=== PATIENT | male | born 1950 | race Caucasian/White ===

== ENCOUNTER 2017-10-18 07:16 | Emergency (ER) | payer SELFPAY ==
--- NOTE | 2017-10-18 07:50 | UC ---
Abdominal Pain Male HPI - HPI Summary HPI Summary: 67 yo male with left groin pain x 3-4 days bulge yesterday gone today no cough no abd pain no constipation - History of Current Complaint Chief Complaint: UCGeneralIllness Stated Complaint: BULGE IN GROIN Time Seen by Provider: 10/18/17 07:29 Hx Obtained From: Patient Onset/Duration: Gradual Onset, Lasting Days Timing: Constant Severity Initially: Mild Severity Currently: None Pain Intensity: 0 Pain Scale Used: 0-10 Numeric Location: Other - left groin Character: Aching Aggravating Factor(s): Other - straining Alleviating Factor(s): Rest Associated Signs And Symptoms: Positive: Negative - Allergies/Home Medications Allergies/Adverse Reactions: Allergies Allergy/AdvReac Type Severity Reaction Status Date / Time No Known Allergies Allergy Verified 10/18/17 07:33 Home Medications: Home Medications NK [No Home Medications Reported] 10/18/17 [History Confirmed 10/18/17] PMH/Surg Hx/FS Hx/Imm Hx Previously Healthy: Yes - Surgical History Surgical History: Yes Surgery Procedure, Year, and Place: Bone spur removal in left shoulder - Family History Known Family History: Positive: Hypertension - Social History Alcohol Use: None Substance Use Type: None Smoking Status (MU): Never Smoked Tobacco Review of Systems Constitutional: Negative Skin: Negative Eyes: Negative ENT: Negative Respiratory: Negative Cardiovascular: Negative Gastrointestinal: Abdominal Pain - left groin Genitourinary: Negative Motor: Negative Neurovascular: Negative Musculoskeletal: Negative Neurological: Negative Psychological: Negative Is Patient Immunocompromised?: No All Other Systems Reviewed And Are Negative: Yes Physical Exam Triage Information Reviewed: Yes Vital Signs: Initial Vital Signs Temp 98.5 F 10/18/17 07:21 Pulse 54 10/18/17 07:21 Resp 18 10/18/17 07:21 BP 161/76 10/18/17 07:21 Pulse Ox 100 10/18/17 07:21 Eyes: Positive: Conjunctiva Clear ENT: Positive: Hearing grossly normal. Negative: Nasal congestion, Nasal drainage, Trismus, Muffled voice Neck: Positive: Supple, Nontender Respiratory: Positive: Lungs clear, Normal breath sounds, No respiratory distress Cardiovascular: Positive: RRR, No Murmur Abdomen Description: Positive: Nontender, No Organomegaly, Hernia @ - left inguinal-easily reducable. Negative: CVA Tenderness (R), CVA Tenderness (L) Bowel Sounds: Positive: Present Musculoskeletal: Positive: ROM Intact, No Edema Neurological: Positive: Fatigued Abd Pain Male Course/Dx - Differential Dx/Clinical Impression Provider Diagnoses: left inguinal hernia Discharge - Discharge Plan Condition: Stable Disposition: HOME Patient Education Materials: Inguinal Hernia (ED) Referrals: No Primary Care Phys,NOPCP [Primary Care Provider] - Additional Instructions: you need to see a general surgeon when you get home
== END 2017-10-18 07:50 | disposition home or self-care (01) ==
LOC: UCEAST 07:16
DX: K40.90 Unilateral inguinal hernia, without obstruction or gangrene, not specified as recurrent (principal)
CPT/HCPCS: 99201; G0463

== ENCOUNTER 2017-10-28 06:18 | Day surgery (SDC) | payer MEDICARE ==
[~2017-10-28 06:18] MED LIST: Buffered Lidocaine 0.9% SYRIN* 5 ML/SYR SYRINGE INTRADERM ONE; Ibuprofen TAB* 400 MG PO ONE; Sodium Citrate/Citric Acid* 15 ML UDC PO ONE
[2017-10-28] MEDS ORDERED: Ibuprofen TAB* 400 MG ONE (06:20)
[2017-10-28] MEDS ORDERED: ceFAZolin 2 GM PREMIX (*) 2 GM/50 ML BAG IVPB ONE (06:20)
[2017-10-28] MEDS ORDERED: Sodium Citrate/Citric Acid* 15 ML UDC ONE (06:21)
[2017-10-28] MEDS ORDERED: Lidocaine 1% MPF wEPI 200,000* 30 ML SDV ONE (07:13)
[2017-10-28] MEDS ORDERED: Bupivacaine 0.5% SDV PF* 10-30ML VIAL ONE (07:13)
[2017-10-28] MEDS ORDERED: Bupivacaine 0.25% SDV* 30 ML ONE (07:34)
[2017-10-28] MEDS ORDERED: Midazolam* 1 MG/ML 2 ML VIAL (2 MG) ONE ×3 (07:46→08:15)
[2017-10-28] MEDS ORDERED: fentaNYL* 50 MCG/ML 2 ML VIAL (100 MCG VIAL) ONE (07:46)
[2017-10-28] MEDS ORDERED: Chloroprocaine 2%* 20 ML VIAL ONE (07:46)
[2017-10-28] MEDS ORDERED: Propofol* 10 MG/ML 20 ML BTL IV PUSH ONE (08:42)
[2017-10-28] MEDS ORDERED: oxyCODONE/Acetamin 5/325 MG* TAB PO PRN ×2 (08:48→09:50)
[2017-10-28] MEDS ORDERED: Naloxone* 0.4 MG/ML 1 ML VIAL IV PRN (08:48)
[2017-10-28] MEDS ORDERED: oxyCODONE/Acetamin 5/325 MG* TAB ONE (09:54)
[2017-10-28 11:42] VITALS: BP 137/81
--- NOTE | 2017-10-29 01:16 | OP ---
CC: [facility], Attn: Fadi Lin MD * DATE OF OPERATION: 10/28/17 - [facility] DATE OF : 50 SURGEON: Fadi Lin MD TRACK MOVING MACHINE OPERATOR: PONCHO Spivey ANESTHESIOLOGIST: Alex Meyer MD ANESTHESIA: Spinal with local anesthetic. PRE-OP DIAGNOSIS: Left inguinal hernia. POST-OP DIAGNOSIS: Left indirect inguinal hernia. OPERATIVE PROCEDURE: Open repair with mesh of a left indirect inguinal hernia. ESTIMATED BLOOD LOSS: Minimal. SPECIMENS: None. WOUND CLASSIFICATION: 1. DRAINS: None. COMPLICATIONS: None. DESCRIPTION OF PROCEDURE: Written informed consent was obtained, the left groin was marked with indelible ink and preoperative antibiotics were administered. The patient was taken to the operating room, placed in the supine position. Sequential compression devices and a warming blanket were applied. The left lower abdomen and groin were prepped and draped in the usual sterile fashion. Time-out verification was completed. 0.5% Marcaine was infiltrated in the left groin and an oblique incision was made several fingerbreadths above the inguinal crease. The incision was carried down through Yulissa's fascia and the external oblique aponeurosis and external ring were identified and subsequently opened in the direction of its fibers. The underlying spermatic cord was encircled with a one quarter-inch Cunningham drain at the pubic tubercle. With care, the spermatic cord and its contents were dissected off from the underlying direct space floor. There did not appear to be a direct space hernia and we were able to identify the epigastric vessels in the usual position just medial to the internal ring. Careful evaluation of the cord revealed a rather large cord lipoma, which was from the cord structures up into the internal ring and ligated and divided and reduced back into the retroperitoneum. This was not sent for specimen. We then identified a moderate-sized indirect inguinal hernia sac and this from the cord structures up into the internal ring once again. The internal ring was somewhat patulous and this reduced easily. A pre-cut Covidien ProGrip mesh was then placed and sutured to the pubic tubercle medially with an interrupted 0 Vicryl suture. This was placed to reconstruct the internal ring in the usual fashion and sutured in several positions with several 0 Vicryl sutures to the conjoint tendon superiorly and the inguinal ligament inferiorly. This covered the direct and indirect spaces nicely with generous overlap. There was no wrinkling of the mesh and it sat in position nicely. Hemostasis was assured. Additional Marcaine was infiltrated. The external oblique aponeurosis was closed with a running 3-0 Vicryl suture. Yulissa's fascia was closed interrupted 3-0 Vicryl suture. The skin was approximated with subcuticular 4-0 Polysorb suture. Steri-Strips and sterile dressings were applied. The patient tolerated the procedure well, was taken to the recovery room in stable condition. [id number]/[facility] #: [id number] [place]
== END 2017-10-28 11:38 | disposition home or self-care (01) ==
LOC: OR 06:18
PROVIDERS: ATTEND Surgery
DX: K40.90 Unilateral inguinal hernia, without obstruction or gangrene, not specified as recurrent (principal)
CPT/HCPCS: A9270-GY; J0690; J2001; J2250; J2400; J2704; J3010